=== PATIENT | female | born 1950 | race Caucasian/White ===

== ENCOUNTER 2024-10-17 05:40 | Day surgery (SDC) | payer MEDICARE, OTHER ==
[2024-10-13 14:09] LABS: BASOPHILS # (AUTO) 0.1 X10'3 (0-0.2); BASOPHILS % (AUTO) 1.1 % (0-1); EOSINOPHILS # (AUTO) 0.1 X10'3 (0-0.9); EOSINOPHILS % (AUTO) 1.8 % (0-6); LYMPHOCYTES # (AUTO) 1.7 X10'3 (1.1-4.8); LYMPHOCYTES % (AUTO) 25.4 % (21-51); MEAN CORPUSCULAR HEMOGLOBIN 30.2 PG (27.0-31.0); MEAN PLATELET VOLUME 8.7 FL (7.4-10.4); MONOCYTES # (AUTO) 0.6 X10'3 (0-0.9); MONOCYTES % (AUTO) 9.2 % (2-12); NEUTROPHILS # (AUTO) 4.2 X10'3 (1.8-7.7); NEUTROPHILS % (AUTO) 62.5 % (42-75); PRE OP HEMATOCRIT 34.3 % (35.0-45.0); PRE OP HEMOGLOBIN 11.7 g/dL (12.0-16.0); PRE OP PLATELET COUNT 226 X10'3 (140-440); PRE OP WHITE BLOOD COUNT 6.7 10'3 (4.8-10.8); RED BLOOD COUNT 3.86 X10'6 (4.20-5.60); RED CELL DISTRIBUTION WIDTH 13.3 % (11.5-14.5)
[2024-10-13 14:11] LABS: ALBUMIN 3.6 G/DL (3.4-5.0); ALBUMIN/GLOBULIN RATIO 1.1 (1.1-1.5); ALKALINE PHOSPHATASE 114 IU/L (46-116); BLOOD UREA NITROGEN 16 MG/DL (7-18); BUN/CREATININE RATIO 21.1 (10.0-20.0); CALCIUM 8.4 MG/DL (8.5-10.1); CHLORIDE 107 MMOL/L (99-107); CREATININE 0.76 MG/DL (0.40-0.90); PRE OP ALT 16 U/L (30-65); PRE OP ANION GAP 4 (8-16); PRE OP AST 13 U/L (10-37); PRE OP BILIRUB, TOTAL 0.3 MG/DL (0.0-1.0); PRE OP GLUCOSE 90 MG/DL (70-104); PRE OP POTASSIUM 4.1 MMOL/L (3.4-5.1); PRE OP SODIUM 143 MMOL/L (135-145); TOTAL PROTEIN 6.8 G/DL (6.4-8.2); eGFR 74 ML/MIN
[~2024-10-17] VITALS: Ht 157.5 cm; Wt 78.2 kg
[2024-10-17] VITALS (12 sets, daily range): BP systolic 119–159; BP diastolic 65–82; PULSE 54–78; RESP 11–38; TEMP 98.8; O2SAT 90–98
[~2024-10-17 05:40] MED LIST: FLUO-167 PO; GLUCOSAMIN; IRBE300T26 PO; LEVO100T9 PO; MSM; MULTIVITAMIN; PROBIOTIC; ROSU10TA72 PO; VITAMIN D-3
[2024-10-17] MEDS ORDERED: cefazolin 2gm/D5W 100mL 100 ML IV ONE (06:15)
[2024-10-17] MEDS: famotidine 20mg tablet PO ONE (06:36)
[2024-10-17] MEDS: ringers solution, lacted 1,000 ML IV SCH (06:37)
[2024-10-17] MEDS: ceFAZolin 2gm in dextrose, iso 50 ML IV ONE (06:37)
[2024-10-17] MEDS ORDERED: BUPIVAcaine 2.5mg/ml inj 50ml vial (contains preservative) ONE (06:55)
[2024-10-17] MEDS ORDERED: LIDOcaine 2% (20mg/ml) 5ml vial ONE ×2 (06:55→08:11)
[2024-10-17] MEDS ORDERED: hydrALAZINE 20mg/ml inj. IV PRN (08:00)
[2024-10-17] MEDS ORDERED: morphine 2 MG/ML inj. syringe IV PRN (08:00)
[2024-10-17] MEDS ORDERED: enalaprilat dihydrate 2.5mg/2ml vial IV PRN (08:00)
[2024-10-17] MEDS ORDERED: ringers solution, lacted 1,000 ML IV SCH (08:00)
[2024-10-17] MEDS ORDERED: morphine 4 MG/ML inj SYRINge IV PRN (08:00)
[2024-10-17] MEDS ORDERED: ondansetron/PF 4mg/2ml inj IV PRN (08:00)
[2024-10-17] MEDS ORDERED: fentaNYL/PF 50MCG/1 ML 2ML syringe ONE (08:09)
[2024-10-17] MEDS ORDERED: propofol inj 20 ML IV ONE (08:11)
[2024-10-17] MEDS ORDERED: MIDAZolam 1 MG/ML 5ML VIAL ONE (08:11)
[2024-10-17] MEDS: HYDROcodone/acetaminophen 5mg/325mg tablet PO ONE (10:16)
== END 2024-10-17 10:35 | disposition home or self-care (01) ==
LOC: PAS 05:40
PROVIDERS: ATTEND Orthopaedic Surgery Hand Surgery
DX: G56.02 Carpal tunnel syndrome, left upper limb (principal); M65.331 Trigger finger, right middle finger; I10 Essential (primary) hypertension; E89.0 Postprocedural hypothyroidism; J44.89 Other specified chronic obstructive pulmonary disease; E78.00 Pure hypercholesterolemia, unspecified; F32.A Depression, unspecified; M81.0 Age-related osteoporosis without current pathological fracture; M19.90 Unspecified osteoarthritis, unspecified site; Z87.891 Personal history of nicotine dependence; Z79.890 Hormone replacement therapy; Z79.899 Other long term (current) drug therapy; Z96.653 Presence of artificial knee joint, bilateral; Z98.890 Other specified postprocedural states; Z88.6 Allergy status to analgesic agent; Z88.8 Allergy status to other drugs, medicaments and biological substances; Z82.49 Family history of ischemic heart disease and other diseases of the circulatory system; Z82.61 Family history of arthritis
CPT/HCPCS: 26055; 36415; 64721; 80053; 82948; 85025; 93005; A4215; A6449; J0690; J2003; J2704; J3490; J7030; J7120; Z7506; Z7512; Z7610; J2250; J3010

== ENCOUNTER 2025-01-19 05:51 | Day surgery (SDC) | payer MEDICARE, OTHER ==
[2025-01-18 15:22] LABS: BASOPHILS # (AUTO) 0.1 X10'3 (0-0.2); BASOPHILS % (AUTO) 1.4 % (0-1); EOSINOPHILS # (AUTO) 0.2 X10'3 (0-0.9); EOSINOPHILS % (AUTO) 4.4 % (0-6); HEMATOCRIT 35.2 % (35.0-45.0); HEMOGLOBIN 11.9 g/dl (12.0-16.0); LYMPHOCYTES # (AUTO) 1.9 X10'3 (1.1-4.8); LYMPHOCYTES % (AUTO) 36.7 % (21-51); MEAN CORPUSCULAR HEMOGLOBIN 29.8 PG (27.0-31.0); MEAN CORPUSCULAR HGB CONC 33.8 g/dL (33.0-36.5); MEAN CORPUSCULAR VOLUME 88.2 FL (78-98); MEAN PLATELET VOLUME 8.5 FL (7.4-10.4); MONOCYTES # (AUTO) 0.5 X10'3 (0-0.9); MONOCYTES % (AUTO) 9.5 % (2-12); NEUTROPHILS # (AUTO) 2.5 X10'3 (1.8-7.7); PLATELET COUNT 218 X10'3 (140-440); RED BLOOD COUNT 3.99 X10'6 (4.20-5.60); WHITE BLOOD COUNT 5.2 X10'3 (4.5-11.0)
[2025-01-18 15:36] LABS: ALBUMIN 3.5 G/DL (3.4-5.0); ANION GAP 6 (8-16); BLOOD UREA NITROGEN 15 MG/DL (7-18); BUN/CREATININE RATIO 25.4 (10.0-20.0); CALCIUM 8.8 MG/DL (8.5-10.1); CHLORIDE 107 MMOL/L (99-107); CREATININE 0.59 MG/DL (0.40-0.90); GLUCOSE 86 MG/DL (70-104); POTASSIUM 4.1 MMOL/L (3.5-5.1); SODIUM 143 MMOL/L (135-145); TOTAL CARBON DIOXIDE 29.8 MMOL/L (24-32); eGFR > 90 ML/MIN
[2025-01-18 15:39] LABS: PROTHROMBIN TIME 10.4 SECONDS (9.0-12.0)
[2025-01-18 15:40] LABS: APTT 26 SECONDS (22-32)
[~2025-01-19] VITALS: Ht 157.5 cm; Wt 80.0 kg
[2025-01-19] VITALS (10 sets, daily range): BP systolic 114–155; BP diastolic 65–89; PULSE 57–75; RESP 10–20; TEMP 98.3; O2SAT 93–98
[2025-01-19] MEDS ORDERED: iohexol 350 MG/ML 50ML vial IV ONE (07:08)
[2025-01-19] MEDS ORDERED: iohexol 350MG/ML 100ml bottle IV ONE (07:08)
[2025-01-19] MEDS ORDERED: verapamil 2.5 mg/ml inj IV ONE (07:08)
[2025-01-19] MEDS ORDERED: midazolam 1 mg/ML 2ml injection ONE (07:08)
[2025-01-19] MEDS ORDERED: LIDOcaine 1% (10mg/ml) 2ml vial ONE ×2 (07:08→08:16)
[2025-01-19] MEDS ORDERED: heparin 1,000unit/ml 10ml vial 10 ML ONE (07:08)
[2025-01-19] MEDS ORDERED: fentaNYL/PF 50MCG/1 ML 2ML syringe ONE (07:08)
[2025-01-19] MEDS ORDERED: nitroGLYCERIN 500mcg/5mL D5W 5 ML IV ONE (07:09)
[2025-01-19] MEDS: diphenhydrAMINE 25mg capsule PO PRN (07:21)
[2025-01-19] MEDS: LORazepam 0.5 MG tablet PO PRN (07:21)
[2025-01-19] MEDS: normal saline 1,000 ML IV SCH (07:22)
[2025-01-19] MEDS ORDERED: OXAZEpam 15mg capsule PO PRN (10:00)
[2025-01-19] MEDS ORDERED: HYDROcodone/acetaminophen 5mg/325mg tablet PO PRN (10:00)
[2025-01-19] MEDS ORDERED: HYDROcodone/acetaminophen 10/325mg tab PO PRN (10:00)
[2025-01-19] MEDS ORDERED: normal saline 1000ml 1,000 ML IV SCH (10:00)
[2025-01-19 10:56] LABS: ISTAT HGB MIX 10.2 g/dl (12.0-16.0); ISTAT Hct MIX 30 %PCV (35-45); ISTAT O2 SATURATION MIX VENOUS 63 % (60-80); ISTAT SOURCE BLNK
== END 2025-01-19 13:05 | disposition home or self-care (01) ==
LOC: SSTAY O 05:51
PROVIDERS: ATTEND Internal Medicine Cardiovascular Disease
DX: I35.2 Nonrheumatic aortic (valve) stenosis with insufficiency (principal); I25.10 Atherosclerotic heart disease of native coronary artery without angina pectoris; I10 Essential (primary) hypertension; I71.21 Aneurysm of the ascending aorta, without rupture; E03.9 Hypothyroidism, unspecified; K21.9 Gastro-esophageal reflux disease without esophagitis; E66.9 Obesity, unspecified; E78.5 Hyperlipidemia, unspecified; Z79.01 Long term (current) use of anticoagulants; Z80.8 Family history of malignant neoplasm of other organs or systems; Z90.710 Acquired absence of both cervix and uterus; Z98.890 Other specified postprocedural states; Z68.31 Body mass index [BMI] 31.0-31.9, adult
CPT/HCPCS: 36415; 80048; 82803; 85014; 85025; 85610; 85730; 93005; 93460; 93567; 99152; 99153; A6258; A6402; C1725; C1751; C1894; J1644; J2003; J2250; J3010; J3490; J7030; Q0163; Q9967; Z7610; 76937

== ENCOUNTER 2025-01-25 10:24 | Outpatient (CLI) | payer MEDICARE, OTHER ==
[~2025-01-25 10:24] MED LIST changes: +IODIXANOL 320 MG/ML INFUS..BTL 100ML IV ONE
[2025-01-25 11:16] LABS: BASOPHILS # (AUTO) 0.1 X10'3 (0-0.2); BASOPHILS % (AUTO) 1.1 % (0-1); EOSINOPHILS # (AUTO) 0.2 X10'3 (0-0.9); EOSINOPHILS % (AUTO) 3.4 % (0-6); HEMATOCRIT 36.8 % (35.0-45.0); HEMOGLOBIN 12.2 g/dl (12.0-16.0); LYMPHOCYTES # (AUTO) 1.5 X10'3 (1.1-4.8); MEAN CORPUSCULAR HEMOGLOBIN 29.3 PG (27.0-31.0); MEAN CORPUSCULAR VOLUME 88.7 FL (78-98); MEAN PLATELET VOLUME 8.9 FL (7.4-10.4); MONOCYTES # (AUTO) 0.4 X10'3 (0-0.9); MONOCYTES % (AUTO) 6.8 % (2-12); NEUTROPHILS # (AUTO) 3.7 X10'3 (1.8-7.7); NEUTROPHILS % (AUTO) 62.7 % (42-75); PLATELET COUNT 226 X10'3 (140-440); RED BLOOD COUNT 4.15 X10'6 (4.20-5.60); RED CELL DISTRIBUTION WIDTH 13.9 % (11.5-14.5)
[2025-01-25 11:43] LABS: ALANINE AMINOTRANSFERASE 21 U/L (12-78); ALBUMIN 3.7 G/DL (3.4-5.0); ALKALINE PHOSPHATASE 131 IU/L (46-116); ANION GAP 7 (8-16); ASPARTATE AMINO TRANSFERASE 14 U/L (10-37); BILIRUBIN,TOTAL 0.5 MG/DL (0.1-1.0); BLOOD UREA NITROGEN 11 MG/DL (7-18); BUN/CREATININE RATIO 19.6 (10.0-20.0); CALCIUM 8.8 MG/DL (8.5-10.1); CHLORIDE 106 MMOL/L (99-107); CREATININE 0.56 MG/DL (0.40-0.90); GLUCOSE 86 MG/DL (70-104); POTASSIUM 4.2 MMOL/L (3.5-5.1); PRO BRAIN NATRIURETIC PEPTIDE 249 PG/ML (0-450); SODIUM 143 MMOL/L (135-145); TOTAL CARBON DIOXIDE 29.6 MMOL/L (24-32); TOTAL PROTEIN 7.3 G/DL (6.4-8.2); eGFR > 90 ML/MIN
[2025-01-25 12:10] LABS: APTT 27 SECONDS (22-32); PROTHROMBIN TIME 10.3 SECONDS (9.0-12.0)
== END 2025-01-25 23:59 | disposition home or self-care (01) ==
LOC: RAD 10:24
PROVIDERS: ATTEND Internal Medicine Cardiovascular Disease
DX: Z01.818 Encounter for other preprocedural examination (principal); I35.0 Nonrheumatic aortic (valve) stenosis; R06.02 Shortness of breath; I65.29 Occlusion and stenosis of unspecified carotid artery; I51.7 Cardiomegaly; N28.1 Cyst of kidney, acquired; I71.40 Abdominal aortic aneurysm, without rupture, unspecified; M16.0 Bilateral primary osteoarthritis of hip; K40.90 Unilateral inguinal hernia, without obstruction or gangrene, not specified as recurrent; J98.4 Other disorders of lung; J98.11 Atelectasis
CPT/HCPCS: 36415; 71046; 71275; 74174; 75572; 80053; 83880; 85025; 85610; 85730; 93880; Q9967

== ENCOUNTER 2025-03-23 05:42 | Inpatient (IN) | payer MEDICARE, OTHER ==
[2025-03-16 10:20] LABS: BASOPHILS # (AUTO) 0.1 X10'3 (0-0.2); BASOPHILS % (AUTO) 1.2 % (0-1); EOSINOPHILS # (AUTO) 0.1 X10'3 (0-0.9); EOSINOPHILS % (AUTO) 2.7 % (0-6); LYMPHOCYTES # (AUTO) 1.3 X10'3 (1.1-4.8); LYMPHOCYTES % (AUTO) 28.2 % (21-51); MEAN CORPUSCULAR HEMOGLOBIN 29.7 PG (27.0-31.0); MEAN CORPUSCULAR VOLUME 87.2 FL (78-98); MEAN PLATELET VOLUME 8.4 FL (7.4-10.4); MONOCYTES # (AUTO) 0.4 X10'3 (0-0.9); MONOCYTES % (AUTO) 8.7 % (2-12); NEUTROPHILS # (AUTO) 2.7 X10'3 (1.8-7.7); NEUTROPHILS % (AUTO) 59.2 % (42-75); PRE OP HEMATOCRIT 34.9 % (35.0-45.0); PRE OP HEMOGLOBIN 11.9 g/dL (12.0-16.0); PRE OP PLATELET COUNT 202 X10'3 (140-440); PRE OP WHITE BLOOD COUNT 4.5 10'3 (4.8-10.8); RED BLOOD COUNT 4.01 X10'6 (4.20-5.60); RED CELL DISTRIBUTION WIDTH 13.6 % (11.5-14.5)
--- NOTE | 2025-03-16 10:31 | ELECTROCARDIOGRAPH REPORT ---
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 JESSICA Cagle Measurements Intervals [place] Rate: 54 P: 48 ID: [id number] QRS: 14 QRSD: 95 T: 8 QT: 445 QTc: 422 Interpretive Statements Sinus bradycardia Electronically Signed On 03-18-2025 15:06:[address] JESSICA Cagle Please click the below link to view image of tracing.
[2025-03-16 10:40] LABS: ALBUMIN 3.5 G/DL (3.4-5.0); ALBUMIN/GLOBULIN RATIO 1.1 (1.1-1.5); ALKALINE PHOSPHATASE 134 IU/L (46-116); BLOOD UREA NITROGEN 14 MG/DL (7-18); BUN/CREATININE RATIO 21.9 (10.0-20.0); CALCIUM 8.7 MG/DL (8.5-10.1); CHLORIDE 105 MMOL/L (99-107); CREATININE 0.64 MG/DL (0.40-0.90); PRE OP ALT 18 U/L (30-65); PRE OP ANION GAP 9 (8-16); PRE OP AST 12 U/L (10-37); PRE OP BILIRUB, TOTAL 0.5 MG/DL (0.0-1.0); PRE OP GLUCOSE 80 MG/DL (70-104); PRE OP POTASSIUM 4.2 MMOL/L (3.4-5.1); PRE OP SODIUM 142 MMOL/L (135-145); PRO BRAIN NATRIURETIC PEPTIDE 195 PG/ML (0-450); THYROID STIMULATING HORMONE 1.02 ulU/ml (0.34-4.50); TOTAL CARBON DIOXIDE 28.4 MMOL/L (24-32); TOTAL PROTEIN 6.6 G/DL (6.4-8.2); eGFR 90 ML/MIN
[2025-03-16 10:45] LABS: BILIRUBIN,URINE NEGATIVE (Neg); CLARITY,URINE CLEAR (Clear); COLOR,URINE YELLOW (Yellow); GLUCOSE, URINE NEGATIVE (Neg); KETONES,URINE NEGATIVE (Neg); LEUKOCYTE ESTERASE ,URINE NEGATIVE (Neg); NITRITES, URINE NEGATIVE (Neg); OCCULT BLOOD,URINE NEGATIVE (Neg); PROTEIN,URINE NEGATIVE (Neg); UROBILINOGEN,URINE 0.2 E.U/dL (0.2-1.0)
[2025-03-16 10:54] LABS: UA COLLECTION TYPE CLN CATCH MIDSTREAM
[2025-03-16 11:06] LABS: PRE OP PROTIME 10.1 SECONDS (9.0-12.0)
--- NOTE | 2025-03-16 11:39 | RADIOLOGY REPORT ---
DI CHEST,TWO VIEWS CLINICAL HISTORY: PREOP COMPARISON: DI CHEST,TWO VIEWS on DOS: 01/25/25 TECHNIQUE: Frontal and lateral view of the chest was obtained FINDINGS: Lines and Tubes: None Lungs: No focal consolidation. Pleura: No effusion. No pneumothorax. Cardiomediastinal contours:Soft tissue density in the posterior mediastinum best seen on the lateral view consistent with a Bochdalek hernia. Bones: No acute osseous abnormality. IMPRESSION: 1. No acute cardiopulmonary disease.
[~2025-03-23] VITALS: Ht 157.5 cm; Wt 77.0 kg
[2025-03-23] VITALS (24 sets, daily range): BP systolic 117–157; BP diastolic 66–86; PULSE 52–72; RESP 12–16; TEMP 96.9–99; O2SAT 92–100
[2025-03-23] MEDS: phenylephrine inj 50 MG in normal saline 250ml IV solN IV SCH (05:30)
[2025-03-23] MEDS: nitroPRUSSIDE (NIPRIDE) (200MCG/ML) 100ML Drip IV SCH (05:30)
[~2025-03-23 05:42] MED LIST changes: +ACET-2615 PO; +BACI1CAP14 PO; +CHOL200026 PO; +DIPH25CA83 PO; -GLUCOSAMIN; -IODIXANOL 320 MG/ML INFUS..BTL 100ML IV ONE; -MSM; +MULT-1085 PO; -MULTIVITAMIN; -PROBIOTIC; -VITAMIN D-3
[2025-03-23] MEDS: ceFAZolin 2gm in dextrose, iso 50 ML IV ONE (06:16)
[2025-03-23] MEDS ORDERED: protamine sulfate 10mg/ml inj. ONE (06:16)
[2025-03-23] MEDS: clopidogrel 300mg tablet PO ONE (06:33)
[2025-03-23] MEDS: famotidine 20mg tablet PO ONE (06:33)
[2025-03-23] MEDS: ringers solution, lacted 1,000 ML IV SCH (06:34)
[2025-03-23] MEDS: VANCOMYCIN 1,500MG inj. 1,500 MG in normal saline 500ml IV soln 300 ML IV ONE (06:34)
[2025-03-23] MEDS ORDERED: diphenhydrAMINE 25mg capsule PO PRN ×2 (08:20→09:50)
[2025-03-23] MEDS ORDERED: ACETAMINOPHEN 1000 MG PO PRN (08:20)
[2025-03-23] MEDS ORDERED: iohexol 350MG/ML 100ml bottle IV ONE (08:21)
[2025-03-23] MEDS ORDERED: heparin 1,000 UNITS/NS 500ml 1,500 ML ONE (08:21)
[2025-03-23] MEDS ORDERED: LIDOcaine 1% 30ml preserv. free vial ONE (08:21)
[2025-03-23] MEDS ORDERED: propofol inj 20 ML IV ONE (08:26)
[2025-03-23] MEDS ORDERED: midazolam 1 mg/ML 2ml injection ONE (08:26)
[2025-03-23] MEDS ORDERED: fentaNYL/PF 50MCG/1 ML 2ML syringe ONE (08:26)
[2025-03-23] MEDS ORDERED: LIDOcaine 1%/PF 5ML 10 MG/ML VIAL ONE (08:26)
[2025-03-23] MEDS ORDERED: heparin 1,000unit/ml 10ml vial 10 ML ONE (09:45)
[2025-03-23] MEDS ORDERED: magnesium sulf-water 2g/50mL 50 ML IV PRN (09:50)
[2025-03-23] MEDS ORDERED: pantoprazole 40mg Tablet.DR PO PRN (09:50)
[2025-03-23] MEDS ORDERED: labetalol 20mg/4ml (5mg/ml) syringe IV PRN (09:50)
[2025-03-23] MEDS ORDERED: docusate sod 100mg capsule PO PRN (09:50)
[2025-03-23] MEDS ORDERED: potassium Cl 40MEQ/1/2NS 520ml 520 ML IV PRN (09:50)
[2025-03-23] MEDS ORDERED: potassium Cl 20mEq/100mL bag 100 ML IV PRN (09:50)
[2025-03-23] MEDS ORDERED: potassium CL 10mEq/100ml bag 100 ML IV PRN (09:50)
[2025-03-23] MEDS ORDERED: proCHLORperazine 10 MG/2 ml inj IV PRN (09:50)
[2025-03-23] MEDS ORDERED: potassium Cl 20 mEq SR tablet PO PRN (09:50)
[2025-03-23] MEDS ORDERED: potassium Cl 40MEQ/270ML bag 250 ML IV PRN (09:50)
[2025-03-23] MEDS ORDERED: ondansetron/PF 4mg/2ml inj IV PRN (09:50)
[2025-03-23] MEDS ORDERED: ALPRAZolam 0.25mg tablet PO PRN (09:50)
[2025-03-23] MEDS ORDERED: hydrALAZINE 20mg/ml inj. IV PRN (09:50)
[2025-03-23] MEDS ORDERED: magnesium sulf-water 4G/100mL 100 ML IV PRN (09:50)
--- NOTE | 2025-03-23 09:52 | OPERATIVE REPORT ---
Operative Report Providers to CC CC: THONG OAKLEY MD ~ Date of Procedure: March 23, 2025 Pre-Operative Diagnosis: Severe Aortic Stenosis Post-Operative Diagnosis SAME as PRE-Op Procedure Performed 1. Ultrasound-guided access, bilateral femoral vessels. 2. Bilateral femoral angiography. 3. Ascending aortography. 4. Temporary transvenous pacer to the RV apex. 5. Placement of a 26 mm Mendoza S3 Resilia valve. Surgeon: Jaquan Dumont MD Whittling Room Operator MD Dr. Zack Angel MD Anesthesiologist: Lucas Glover Type of Anesthesia: Other Findings: Severe Aortic Stenosis Complications None Prosthetics\Implants used: Mendoza 26mm S3 Resilia Estimated Blood Loss: Minimal Specimen Removed: None Description of Procedure: The patient was brought to the veterinarian laboratory animal care in a fasting state. They underwent MAC anesthesia. Ultrasound was used to guide access to the bilateral femoral vessels, 7-[place] sheath, left femoral artery, 6-[place] sheath, right femoral artery and left femoral vein. Bilateral femoral angiograms were obtained. Heparin was given to maintain an ACT over 250 seconds. Two crisscross Percloses were placed on the right. We upsized to an 8-[place] sheath. Two pigtail catheters placed in the ascending aorta. Ascending aortography done to determine the angle of deployment. Temporary transvenous pacer to the RV apex and confirmed capture. We upsized an 8-[place] sheath to a 14-[place] Mendoza eSheath on the right. We crossed the aortic valve using a straight stiff exchange length Terumo wire supported by a 6-[place] AL1 catheter. LV AO pressures were recorded. A [employer] extra support wire was placed in the left ventricle. A 26mm Mendoza S3 Resilia valve was brought to position and under rapid right ventricular pacing was deployed. Post-procedure, there was trivial AI and no residual . Guidewires and balloons were removed at this time. The temporary pacer was removed. The 14-[place] Mendoza eSheath was removed and two crisscross Percloses tied with adequate hemostasis. The arterial sheath on the left was removed and a single Perclose tied. The venous sheath on the left was removed and a single Angioseal used for hemostasis. Protamine was given to reverse the effects of heparin. The patient was stable post-procedure. Good pulses in the legs and no evidence of bleeding, transferred to the PACU in stable condition. HEMODYNAMICS: See procedure log RESULTS: 1. Successful placement of a 26 mm Mendoza S3 Resilia valve, right transfemoral approach, two perclose devices. Plavix 75mg QD(prior gastric bypass) 2. Hyperlipidemia: Resume statin 3. Hypertension: Resume if blood pressure remains stable Patient will be watched in the recovery area until stable, then transferred to telemetry at that time. JAQUAN DUMONT MD March 23, 2025 09:52
[2025-03-23] MEDS ORDERED: fentaNYL/PF 50MCG/1 ML 2ML syringe IV PRN (10:20)
[2025-03-23] MEDS ORDERED: morphine 4 MG/ML inj SYRINge IV PRN (10:20)
[2025-03-23] MEDS: morphine 2 MG/ML inj. syringe IV PRN (10:33)
[2025-03-23] MEDS: fentaNYL/PF 50MCG/1 ML 2ML syringe IV PRN (10:33)
[2025-03-23] MEDS: acetaminophen 1,000mg/100ml IV 100 ML IV SCH (10:34)
--- NOTE | 2025-03-23 10:34 | ELECTROCARDIOGRAPH REPORT ---
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 JESSICA Cagle Measurements Intervals [place] Rate: 54 P: -5 MT: 191 QRS: -1 QRSD: 113 T: -14 QT: 483 QTc: 458 Interpretive Statements Sinus rhythm Borderline intraventricular conduction delay Borderline T abnormalities, inferior leads Electronically Signed On 03-23-2025 19:48:[address] JESSICA Cagle Please click the below link to view image of tracing.
[2025-03-23] MEDS: normal saline 1000ml 1,000 ML IV SCH (13:18)
[2025-03-23] MEDS: HYDROcodone/acetaminophen 5mg/325mg tablet PO PRN (13:23)
[2025-03-23] MEDS: ceFAZolin 1GM/D5W- ADD-VANTAGE 50 ML IV SCH (16:21)
[2025-03-23] MEDS: sod chloride 0.9% 10ml flush syringe IV SCH (16:21)
--- NOTE | 2025-03-23 16:56 | CARDIOLOGY REPORT ---
APPROVED REPORT EXAM: Focused, limited intraprocedural transthoracic 2D, spectral and color flow Doppler echocardiogr am during TAVR deployment. Patient Location: [facility] Blood Pressure: 109 / 70 mmHg Heart Rate: 60 bpm Rhythm: SINUS Indications SEVERE AORTIC STENOSIS 26mm Mendoza Davie 3 Ultra RESILIA Bioprosthetic TAVR Recovery Coach: MD PAOLA / Interventionalist: Enedelia Dumont MD and Brandy May MD. / Surgeon: Carlos DELGADO MD. / Device rep: Marifer Cheek ELS Previous echo: 01/12/25 BVC AD EF: 60%; MICHAEL 0.89; PKV: 3.70' GRAD: 55/30; LVOT 2.00; trTR; trMR; ASC A O 4.5CM LEFT VENTRICLE Normal LV size and function. Mild concentric hypertrophy. LVEF is 65%. RIGHT VENTRICLE RV is normal size and function. ATRIA Left atrium appears at least moderately dilated. Mobile interatrial septum - no flow detected. AORTIC VALVE Trileaflet AV appears heavily calcified with significant stenosis demonstrated by reduced excursion a nd increased transvalvular and ascending aorta turbulance. MICHAEL is measured at 0.9 cmsq. Peak / mean g radients of 68 / 37mmHG. Peak velocity is measured at 4.11 m/sec.Trace insufficiency. POST DEPLOYME NT (LOOP:39): 26 mm Mendoza Davie 3 Ultra Resilia bioprosthetic TAVR appears well seated with normal function. Trace paravalvular leak present at 4, 12 o'clock in TTE SAX BASE. MICHAEL is measured at 3.15 cmsq. Peak / mean gradients of 20 / 9 mmHG. Peak velocity is measured at 2.23 m/sec. MITRAL VALVE MV is thickened with mild annular thickening. Trace regurgitation. TRICUSPID VALVE The tricuspid valve is normal in structure. Trace tricuspid regurgitation. GREAT VESSELS Ascending aorta measured at 4.5 cm. PERICARDIUM There is no pericardial effusion.
[2025-03-24] MEDS: acetaminophen 325mg tablet PO PRN (00:47)
[2025-03-24 02:00] VITALS: BP 118/66; PULSE 75; RESP 18; O2SAT 93
[2025-03-24] MEDS: ondansetron/PF 4mg/2ml inj IV PRN (05:09)
[2025-03-24 06:00] VITALS: BP 113/66; PULSE 75; RESP 14; TEMP 97.1; O2SAT 92
[2025-03-24 06:31] LABS: BASOPHILS % (AUTO) 0.5 % (0-1); EOSINOPHILS # (AUTO) 0.1 X10'3 (0-0.9); EOSINOPHILS % (AUTO) 1.2 % (0-6); HEMATOCRIT 30.4 % (35.0-45.0); HEMOGLOBIN 10.3 g/dl (12.0-16.0); LYMPHOCYTES # (AUTO) 0.8 X10'3 (1.1-4.8); MEAN CORPUSCULAR HEMOGLOBIN 29.8 PG (27.0-31.0); MEAN CORPUSCULAR VOLUME 87.6 FL (78-98); MEAN PLATELET VOLUME 9.1 FL (7.4-10.4); MONOCYTES # (AUTO) 0.5 X10'3 (0-0.9); MONOCYTES % (AUTO) 9.5 % (2-12); NEUTROPHILS # (AUTO) 4.2 X10'3 (1.8-7.7); NEUTROPHILS % (AUTO) 74.8 % (42-75); PLATELET COUNT 126 X10'3 (140-440); RED BLOOD COUNT 3.48 X10'6 (4.20-5.60); RED CELL DISTRIBUTION WIDTH 13.1 % (11.5-14.5); WHITE BLOOD COUNT 5.6 X10'3 (4.5-11.0)
[2025-03-24 07:10] LABS: ALANINE AMINOTRANSFERASE 15 U/L (12-78); ALBUMIN 2.9 G/DL (3.4-5.0); ALKALINE PHOSPHATASE 108 IU/L (46-116); ANION GAP 10 (8-16); ASPARTATE AMINO TRANSFERASE 13 U/L (10-37); BILIRUBIN,TOTAL 0.6 MG/DL (0.1-1.0); BLOOD UREA NITROGEN 8 MG/DL (7-18); CALCIUM 8.3 MG/DL (8.5-10.1); CHLORIDE 105 MMOL/L (99-107); CREATININE 0.57 MG/DL (0.40-0.90); GLUCOSE 105 MG/DL (70-104); MAGNESIUM 1.7 MG/DL (1.5-2.4); POTASSIUM 3.2 MMOL/L (3.5-5.1); PRO BRAIN NATRIURETIC PEPTIDE 970 PG/ML (0-450); SODIUM 142 MMOL/L (135-145); TOTAL CARBON DIOXIDE 26.9 MMOL/L (24-32); TOTAL PROTEIN 5.8 G/DL (6.4-8.2); eCRCL 66 ML/MIN; eGFR > 90 ML/MIN
[2025-03-24] MEDS: atorvastatin 10mg tablet PO SCH (08:00)
--- NOTE | 2025-03-24 08:18 | RADIOLOGY REPORT ---
CHEST RADIOGRAPH Indication: s/p TAVR Technique: Single frontal view of the chest was obtained Comparison: None FINDINGS: Lines and Tubes: None Lungs: No focal consolidation. Pleura: No effusion. No pneumothorax. Cardiomediastinal contours: Unremarkable Bones: No acute osseous abnormality. IMPRESSION: No acute cardiopulmonary disease.
--- NOTE | 2025-03-24 08:27 | ELECTROCARDIOGRAPH REPORT ---
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 JESSICA Cagle Measurements Intervals [place] Rate: 71 P: 31 ID: [id number] QRS: -10 QRSD: 109 T: -11 QT: 411 QTc: 447 Interpretive Statements Sinus rhythm Borderline T abnormalities, inferior leads Electronically Signed On 03-24-2025 19:06:[address] JESSICA Cagle Please click the below link to view image of tracing.
[2025-03-24] MEDS: lactobacillus rhamnosus 10,000 MMU CELLS/CAPSULE PO SCH (08:43)
[2025-03-24] MEDS: clopidogrel 75mg tablet PO SCH (08:43)
[2025-03-24] MEDS: levoTHYROXINE 100mcg tablet PO SCH (08:43)
[2025-03-24] MEDS: FLUoxetine 20mg capsule PO SCH (08:43)
[2025-03-24] MEDS: multivitamins, therapeutics tablet PO SCH (08:44)
[2025-03-24] MEDS: losartan 50mg tablet PO SCH (08:45)
[2025-03-24] MEDS: cholecalciferol (vitamin D3) 1,000 unit (25mcg) tablet PO SCH (08:45)
[2025-03-24 08:51] VITALS: RESP 14; O2SAT 92
[2025-03-24] MEDS: magnesium citrate 296ml oral solution PO ONE (09:33)
[2025-03-24 11:00] VITALS: BP 145/79; PULSE 76; RESP 12; TEMP 97.2; O2SAT 96
[2025-03-24 15:00] VITALS: BP 126/69; PULSE 62; RESP 12; TEMP 97.1; O2SAT 95
[2025-03-24] MEDS ORDERED: CLOP75TA34 PO (15:09)
--- NOTE | 2025-03-24 19:56 | CARDIOLOGY REPORT ---
APPROVED REPORT EXAM: Limited 2D, Doppler, and color-flow Echocardiogram. Patient Location: 3020 Blood Pressure: 129/69 mmHg Heart Rate: 75 bpm Indications ONE DAY FOLLOW-UP TAVR 26 mm Mendoza Davie 3 Ultra RESILIA Bioprosthetic TAVR Senior Regulatory Affairs Specialist: Roxie Cagle MD Previous echo 03/23/25 [facility] EF: 65; MICHAEL: 3.15; Peak v: 2.23; Grad: 2D Dimensions LA Diam4.5 cm IVSd 1.2 (0.7-1.1cm) LVDd 3.9 cm PWd 1.2 (0.7-1.1cm) IVSs 1.1 (0.8-1.2cm) LVDs 2.2 (2.5-4.0cm) PWs 1.2 (0.8-1.2cm) LVOT Diameter 2.60 (1.8-2.4cm) LVEF(%) 75.7 (>50%) IVC 16.04 mm FS (%) 43.9 % SV 48.6 ml CO 3.6 L/min M-Mode Dimensions Aortic Root 2.49 (2.2-3.7cm) Aortic Valve AoV Peak Ugo. 248.9 cm/s AoV VTI 56.7 cm AO Peak GR. 24.8 mmHg AO Mean GR. 15 mmHg LVOT VTI 33.73 cm LVOT Peak Ugo. 134.6 cm/s MICHAEL(VTI)/BSA 3.16 cm2/m2 MICHAEL (VTI) 3.16 cm2 Tricuspid Valve TR P. Velocity 244 cm/s RAP ESTIMATE 10 mmHg TR Peak Gr. 24 mmHg RVSP 34 mmHg LEFT VENTRICLE Normal LV size with hyperdynamic function. Mild concentric hypertrophy. Overall LVEF is 75%. RIGHT VENTRICLE RV is normal size and function. ATRIA Left atrium is mildly dilated. AORTIC VALVE 26 mm Mendoza Davie 3 Ultra Resilia bioprosthetic TAVR appears well seated with normal function. Tra ce paravalvular leak present at 4 o'clock in TTE SAX BASE. MICHAEL is measured at 3.16cmsq. Peak / mean g radients of 25 / 15 mmHG. Peak velocity is measured at 2.49 m/sec. MITRAL VALVE Mitral valve leaflets are mildly thickened with mild annular calcification. No stenosis. Mild regurgi tation. MV not fully evaluated due to limited focused exam. TRICUSPID VALVE The tricuspid valve is normal in structure with trace regurgitation. PERICARDIUM No pericardial effusion seen Other Information Study Quality: Adequate Conclusion Overall LVEF is 75%. RV is normal size and function. 26 mm Mendoza Davie 3 Ultra Resilia bioprosthetic TAVR appears well seated with normal function. Tr bernard paravalvular leak present at 4 o'clock in TTE SAX BASE. MICHAEL is measured at 3.16cmsq. Peak / devendra n gradients of 25 / 15 mmHG. Peak velocity is measured at 2.49 m/sec. Mitral valve leaflets are mildly thickened with mild annular calcification. No stenosis. Mild regur gitation. MV not fully evaluated due to limited focused exam. The tricuspid valve is normal in structure with trace regurgitation. No pericardial effusion seen
--- NOTE | 2025-03-28 11:50 | DISCHARGE SUMMARY ---
Discharge Summary Providers to CC ~ Discharge Summary Admission Diagnosis: Severe Aortic Stenosis Hospital Course DATE OF ADMISSION: 03/23/25 DATE OF DISCHARGE: 03/24/25 Discharge Diagnosis\Comment: Severe aortic stenosis status post TAVR Hyperlipidemia Hypertension Operations\Procedures: 1. Ultrasound-guided access, bilateral femoral vessels. 2. Bilateral femoral angiography. 3. Ascending aortography. 4. Temporary transvenous pacer to the RV apex. 5. Placement of a 26 mm Mendoza S3 Resilia valve. Consultants: No consultants Complications: No complications Condition on DC: Stable New Medications: Clopidogrel Bisulfate (Clopidogrel) 75 Mg Tablet 75 MG PO DAILY for 30 Days, #30 TAB Do not stop medication unless instructed by prescriber. Continued Medications: Acetaminophen (Tylenol Extra Strength) 500 Mg Tablet 1000 MG PO BID PRN for pain Bacillus Coagulans/Inulin (Probiotic 1 B Cfu-250 mg Cap) 1 Billion Cell-250 Mg Capsule 1 CAP PO DAILY for 30 Days, #30 CAP 0 Refills Cholecalciferol (Vitamin D3) (Vitamin D3) 50 Mcg (2000 Unit) Tablet 1 TAB PO DAILY for 30 Days, #30 TAB 0 Refills Diphenhydramine Hcl (Benadryl) 25 Mg Capsule 1 CAP PO HS PRN for sleep Fluoxetine HCl (Fluoxetine HCl) 20 Mg Capsule 1 CAP PO DAILY Irbesartan (Irbesartan) 300 Mg Tablet 1 TAB PO DAILY Levothyroxine Sodium (Levothyroxine Sodium) 100 Mcg Tablet 1 TAB PO DAILY Multivitamin (Multi Vitamin Daily) 1 Each Tablet 2 TAB PO DAILY for 30 Days, #30 TAB 0 Refills Rosuvastatin Calcium (Rosuvastatin Calcium) 10 Mg Tablet 1 TAB PO DAILY Discharge Summary: This is a 74-year-old female who presented for planned TAVR. Underwent placement of a 26 mm Mendoza S3 resilient valve via the right transfemoral approach. Please see Dr. Yonathan Dumont's dictation for further details on the procedure. She was monitored overnight in the telemetry unit. Remained hemodynamically stable. Has been up and ambulatory and denies chest pain or pressure. No shortness a breath. No dizziness, lightheadedness or syncope. Postoperative testing included an EKG which demonstrates sinus rhythm. Echocardiogram demonstrates an LVEF of 75%. TAVR valve is well seated with trace perivalvular leak noted at 4:00. Physical exam prior to discharge: General: Awake, alert, oriented. No apparent distress Neck: Supple. Normal range of motion. No JVD Respiratory: Lungs are clear to auscultation bilaterally. No respiratory distress. Chest: Normal shape and size. No accessory muscle use. Cardiovascular: Regular rate and rhythm. S1-S2. No murmur, gallop, rub. Gastrointestinal: Abdomen is soft. Nontender to palpation. Bowel sounds present. Extremities: No lower extremity edema, cyanosis or clubbing. Bilateral femoral cath sites with dressings clean dry and intact. No swelling or hematoma. Dorsalis pedis pulses are palpable. Neurologic: Alert and oriented x4. Nonfocal Psychiatric: Normal mood and affect. Skin: Normal color. Warm and dry. Plan: Case was reviewed with Dr. Yonathan Dumont and Dr. Jose Angel May. They had the chance to review postoperative testing in agreement with discharge home. Activity restrictions reviewed. Patient is stable for discharge. *Problems/Diagnosis: (1) Hypertension (2) Hyperlipidemia (3) Aortic stenosis Total Time Spent on D/C: Up to 30 Minutes Counseling Services Smoking & Tobacco Cessation: N/A DENZEL BENJAMIN NP March 28, 2025 11:50
== END 2025-03-24 16:38 | disposition home or self-care (01) | DRG 266 ==
LOC: PAS IN 05:42 → PCU 3S 11:50
PROVIDERS: ADMIT Internal Medicine Cardiovascular Disease; ATTEND Internal Medicine Cardiovascular Disease
PROC: B41D1ZZ Fluoroscopy of Aorta and Bilateral Lower Extremity Arteries using Low Osmolar Contrast (ICD-10-PCS; 2025-03-23)
PROC: 02RF38Z Replacement of Aortic Valve with Zooplastic Tissue, Percutaneous Approach (ICD-10-PCS; principal; 2025-03-23 08:45)
DX: I35.0 Nonrheumatic aortic (valve) stenosis (principal); Z00.6 Encounter for examination for normal comparison and control in clinical research program; I50.33 Acute on chronic diastolic (congestive) heart failure; Z79.899 Other long term (current) drug therapy; I11.0 Hypertensive heart disease with heart failure
CPT/HCPCS: 33361; 36415; 71045; 71046; 76937; 80053; 81003; 82948; 83735; 83880; 84443; 85025; 85347; 85610; 85730; 86870; 86885; 86900; 86901; 86902; 86905; 86920; 86922; 87081; 93005; 93308; A4615; A4618; A6258; A6449; C1756; C1760; C1769; C1894; G0378; J0131; J0690; J1644; J2003; J2250; J2270; J2371; J2405; J2704; J2720; J3010; J3370; J3490; J7030; J7040; J7050; J7120; Q9967

== ENCOUNTER 2025-06-27 16:24 | Emergency (ER) | payer MEDICARE, OTHER ==
[~2025-06-27] VITALS: Ht 157.5 cm; Wt 76.4 kg
[~2025-06-27 16:24] MED LIST changes: +CLOP75TA34 PO
[2025-06-27] MEDS: HYDROcodone/acetaminophen 10/325mg tab PO STA ×2 (16:41→19:16)
--- NOTE | 2025-06-27 16:45 | Physician Documentation ---
History of Present Illness ~ Chief Complaint: Wrist pain Stated Complaint: ARM PAIN Time Seen by MD: 18:27 Primary Medical Doctor: Dr. Gurjit COSTELLO This is a 74-year-old female who presents with left wrist pain after a ground level trip and fall on a outstretched arm, patient reports she is on blood thinner though no head strike and no loss of consciousness. Patient reports noting obvious deformity to her wrist. Patient reports no numbness or tingling to fingers of left hand. Medication Reconciliation Allergies: Coded Allergies: VAL Inhibitors (Verified Allergy, Unknown, SEVERE COUGH WITH DESAT, DROP IN HEART RATE, 10/14/24) Beta-Blockers (Beta-Adrenergic Bloc (Verified Allergy, Unknown, WHEEZING, 10/14/24) NSAIDS (Non-Steroidal Anti-Inflamma (Verified Allergy, Unknown, 03/22/25) clindamycin (Verified Allergy, Unknown, C.DIFF SEPSIS, 10/14/24) droperidol (Verified Allergy, Unknown, EXTRAPYRAMIDAL SPASMS, 10/14/24) Scheduled Bacillus Coagulans/Inulin (Probiotic 1 B Cfu-250 mg Cap), 1 CAP PO DAILY, (Reported) Cholecalciferol (Vitamin D3) (Vitamin D3), 1 TAB PO DAILY, (Reported) Clopidogrel Bisulfate (Clopidogrel), 75 MG PO DAILY Fluoxetine HCl (Fluoxetine HCl), 1 CAP PO DAILY, (Reported) Irbesartan (Irbesartan), 1 TAB PO DAILY, (Reported) Levothyroxine Sodium (Levothyroxine Sodium), 1 TAB PO DAILY, (Reported) Multivitamin (Multi Vitamin Daily), 2 TAB PO DAILY, (Reported) Rosuvastatin Calcium (Rosuvastatin Calcium), 1 TAB PO DAILY, (Reported) Scheduled PRN Acetaminophen (Tylenol Extra Strength), 1,000 MG PO BID PRN for pain, (Reported) Diphenhydramine Hcl (Benadryl), 1 CAP PO HS PRN for sleep, (Reported) Review of Systems Constitutional: Denies: chills, fever, weakness Eyes: Denies: pain, blurred vision ENT: Denies: ear pain, nose pain, throat pain, mouth pain Respiratory: Denies: cough, shortness of breath Cardiovascular: Denies: chest pain, palpitations Gastrointestinal: Denies: abdominal pain, nausea, vomiting Genitourinary: Denies: burning, dysuria Female Genitalia: Denies: vaginal discharge, pelvic pain Neurological: Denies: headache, dizziness Musculoskeletal: Denies: pain, swelling Integumentary: Denies: rash, lesions Allergic/Immunologic: Denies: hives, itching Hematologic/Lymphatic: Denies: no symptoms reported Psychiatric: Denies: depression, anxiety Physical Exam Vital Signs: Temperature: 98.1, Source: Temporal, Heart Rate: 60, Respiratory Rate: 18, BP: 141/77, Pulse Oximetry: 97, Weight: 76.360 Oxygen Flow Rate: 0 Physical Exam General: Awake and Alert, no acute distress. HEENT: Conjunctiva pink, Sclera clear, Mucus Membranes moist. Neck: Supple without masses and tenderness. Resp: Unlabored. Lungs clear to auscultation bilaterally. Heart: Regular Rate and rhythm, normal S1 and S2 without murmur, rub or gallop. Musculoskeletal: Patient on exam does have obvious deformity of the left distal radius. Patient has significant pain with any type of range of motion. Patient is neurovascularly intact distally. Motor function intact distally. Extremities: No cyanosis,clubbing or edema. Skin: Warm and Dry. Progress Results/Orders Results/Orders Medications Received in ER Medications (Trade) Dose Ordered Sig/Constance Route PRN Reason Start Time Stop Time Status Last Admin Dose Admin ([place] 10/325mg tab) 1 tab ONCE STAT PO 06/27/25 16:37 06/27/25 16:38 DC 06/27/25 16:41 1 TAB Vital Signs 06/27/25 06/27/25 16:35 16:41 Temp 98.1 Pulse 60 Resp 18 18 B/P (MAP) 141/77 Pulse Ox 97 O2 Flow Rate 0 EKG/XRAY/CT/US/VASC/MRI Bone/Soft Tissue X-Ray (Ext.) : Additional Comment X-ray of the left wrist interpreted by myself today shows left distal radius metaphyseal fracture with displacement and dorsal angulation. There is also ulnar styloid fracture present. DIAGNOSTIC RADIOLOGY Patient: SERGEI PERALTA Medical Record: [id number] 1950, Age: 74 Sex: Female Location: ER Patient Status: REG ER Service Date/Time: 06/27/251636 Ordering Physician: NATHANAEL MEDINA MD Exam: WRIST, COMPLETE (3VW MIN) EXAM: DI WRIST, COMPLETE (3VW MIN) HISTORY: WRIST PAIN,LEFT COMPARISON: None TECHNIQUE: Three views of the left wrist were performed. FINDINGS/IMPRESSION: 1. Left distal radial metaphyseal fracture with dorsal displacement, dorsal angulation, comminution, and intra-articular extension. 2. Mildly displaced fracture of the base of the ulnar styloid. 3. No fractures are identified about the carpal bones or metacarpal bones. 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 Electronically Signed by:KUSH POLO MD Date & Time: 06/27/251714 Dictated by: KUSH POLO MD Dictation date and time: 06/27/251714 Primary Care Provider: NO PRIMARY CARE PROVIDER cc: NATHANAEL MEDINA MD ~ Medical Decision Making Findings This is a 74-year-old female who presents with left wrist pain after a ground level trip and fall on a outstretched arm, patient reports she is on blood thinner though no head strike and no loss of consciousness. Patient reports noting obvious deformity to her wrist. Patient reports no numbness or tingling to fingers of left hand. I [facility] and he recommended finger traction with application of sugar-tong splint being applied to the left upper extremity. And patient will follow up with Dr. Hutchinson in his office as soon as possible for likely surgical intervention. Patient will return to ED with any worsening, concerning or changing symptoms. Patient was given a [place] 10/325 mg tablet by mouth and 2 hours later patient had no significant improvement of pain and another tablet of [place] 10/325 mg was given to the patient. Patient was given a prescription for [place] 10/325 mg sent to patient pharmacy to be taken as directed. Departure Disposition: HOME / SELF CARE / HOMELESS Impression: Primary Impression: Distal radius fracture, left Qualified Codes: S52.502A - Unspecified fracture of the lower end of left radius, initial encounter for closed fracture Additional Impression: Fracture of ulnar styloid Qualified Codes: S52.612A - Displaced fracture of left ulna styloid process, initial encounter for closed fracture Condition: Stable Discharge Instructions: Wrist Fracture Treated With Immobilization Additional Instructions: I did consult with Dr. Hutchinson the orthopedist on-call tonight and he recommended finger traction with application of sugar-tong splint being applied to the left upper extremity. And patient will follow up with Dr. Hutchinson in his office as soon as possible for likely surgical intervention. Patient will return to ED with any worsening, concerning or changing symptoms. Patient was given a [place] 10/325 mg tablet by mouth and 2 hours later patient had no significant improvement of pain and another tablet of [place] 10/325 mg was given to the patient. Patient was given a prescription for [place] 10/325 mg sent to patient pharmacy to be taken as directed. Prescription of senna and stool softener also sent to patient pharmacy. Referrals: NO PRIMARY CARE PROVIDER (PCP) Prescriptions Sennosides/Docusate Sodium (Senna Plus 8.6-50 mg Tablet) 8.6 Mg-50 Mg Tablet 1 TAB PO TID for 10 Days, #30 TAB 0 Refills Prov: BROOKLYN HARTMAN 06/27/25 Hydrocodone Bit/Acetaminophen (Hydrocodone-Apap 10-325 Tablet) 10mg/325mg Tablet 1 TAB PO QID PRN PRN for pain for 5 Days, #20 TAB Prov: BROOKLYN HARTMAN 06/27/25 Signature Scribe Signature: No scribe Attestation: No scribe DEVYN TAYLORP Jun 27, 2025 16:45 BROOKLYN HARTMAN Jun 27, 2025 19:09
--- NOTE | 2025-06-27 17:17 | RADIOLOGY REPORT ---
EXAM: DI WRIST, COMPLETE (3VW MIN) HISTORY: WRIST PAIN,LEFT COMPARISON: None TECHNIQUE: Three views of the left wrist were performed. FINDINGS/IMPRESSION: 1. Left distal radial metaphyseal fracture with dorsal displacement, dorsal angulation, comminution, and intra-articular extension. 2. Mildly displaced fracture of the base of the ulnar styloid. 3. No fractures are identified about the carpal bones or metacarpal bones. 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
[2025-06-27] MEDS ORDERED: HYDR-3973 PO (19:09)
[2025-06-27] MEDS ORDERED: SENN-302 PO (19:12)
[2025-06-27 20:07] VITALS: BP 138/72; PULSE 58; RESP 18; TEMP 98.6; O2SAT 98
== END 2025-06-27 20:09 | disposition home or self-care (01) ==
LOC: ER 16:25 → ADULT MH 16:29 → ER 20:09
DX: S52.592A Other fractures of lower end of left radius, initial encounter for closed fracture (principal); S52.612A Displaced fracture of left ulna styloid process, initial encounter for closed fracture; Z88.1 Allergy status to other antibiotic agents; Z88.6 Allergy status to analgesic agent; X58.XXXA Exposure to other specified factors, initial encounter; Y93.89 Activity, other specified; Y92.89 Other specified places as the place of occurrence of the external cause; Y99.8 Other external cause status
CPT/HCPCS: 29125; 73110; 99284

== ENCOUNTER 2025-07-10 09:18 | Day surgery (SDC) | payer OTHER, MEDICARE ==
[2025-07-07 15:06] LABS: MEAN PLATELET VOLUME 8.1 FL (7.4-10.4); PRE OP HEMATOCRIT 36.1 % (35.0-45.0); PRE OP HEMOGLOBIN 12.0 g/dL (12.0-16.0); PRE OP PLATELET COUNT 197 X10'3 (140-440); PRE OP WHITE BLOOD COUNT 7.0 10'3 (4.8-10.8); RED CELL DISTRIBUTION WIDTH 14.3 % (11.5-14.5)
[2025-07-07 15:20] LABS: CREATININE 0.55 MG/DL (0.40-0.90); PRE OP ALT 23 U/L (30-65); PRE OP ANION GAP 7 (8-16); PRE OP AST 24 U/L (10-37); PRE OP BILIRUB, TOTAL 0.4 MG/DL (0.0-1.0); PRE OP GLUCOSE 87 MG/DL (70-104); PRE OP POTASSIUM 4.3 MMOL/L (3.4-5.1); PRE OP SODIUM 143 MMOL/L (135-145); TOTAL CARBON DIOXIDE 31.3 MMOL/L (24-32); eGFR > 90 ML/MIN
[~2025-07-10] VITALS: Ht 157.5 cm; Wt 76.2 kg
[2025-07-10] VITALS (14 sets, daily range): BP systolic 122–147; BP diastolic 70–89; PULSE 65–81; RESP 11–16; TEMP 98; O2SAT 92–99
[~2025-07-10 09:18] MED LIST changes: -ACET-2615 PO; +BUPIVAcaine/PF 2.5mg/ml (0.25%) 10ml vial ONE; +CLOP75TA33 PO; -CLOP75TA34 PO; -DIPH25CA83 PO; +IRBE150T34 PO; -IRBE300T26 PO; +LIDOcaine 2% (20mg/ml) 5ml vial ONE; -MULT-1085 PO; +MULT-1249 PO
[2025-07-10] MEDS: ringers solution, lacted 1,000 ML IV SCH (10:13)
[2025-07-10] MEDS: ceFAZolin 2gm/dext,iso 50mL 50 ML IV ONE (10:13)
[2025-07-10] MEDS ORDERED: propofol inj 20 ML IV ONE (10:57)
[2025-07-10] MEDS ORDERED: ondansetron/PF 4mg/2ml inj ONE (10:57)
[2025-07-10] MEDS ORDERED: ROPIVAcaine 0.5% (5mg/ml) 30ml vial ONE (10:57)
[2025-07-10] MEDS ORDERED: fentaNYL/PF 50MCG/1 ML 2ML syringe ONE (10:57)
[2025-07-10] MEDS ORDERED: midazolam 1 mg/ML 2ml injection ONE (10:57)
[2025-07-10] MEDS ORDERED: desflurane 240ml liquid inh. IH ONE (11:30)
[2025-07-10] MEDS ORDERED: dexamethasone sod phosphate 4mg/ml inj. ONE (11:30)
[2025-07-10] MEDS ORDERED: morphine 4 MG/ML inj SYRINge IV PRN (12:00)
[2025-07-10] MEDS ORDERED: ondansetron/PF 4mg/2ml inj IV PRN (12:00)
[2025-07-10] MEDS ORDERED: fentaNYL/PF 50MCG/1 ML 2ML syringe IV PRN ×2 (12:00)
[2025-07-10] MEDS ORDERED: ringers solution, lacted 1,000 ML IV SCH (12:00)
[2025-07-10] MEDS ORDERED: hydrALAZINE 20mg/ml inj. IV PRN (12:00)
--- NOTE | 2025-07-10 12:06 | ANESTHESIA RECORDS ---
Nerve Block Providers to CC CC: ALANNA STARKEY Jr., MD ~ Diagnosis: Nerve Block requested by: ALANNA STARKEY Jr., MD Neuraxial/Peripheral Nerve Block requested for Post-operative analgesia by Physician above DIAGNOSIS: Post-operative pain. (Body Area) Shoulder: [ ] Arm: [ ] Hand: [ ] Hip: [ ] Knee: [ ] Ankle: [ ] Foot: [ ] Leg: [ ] Abdomen: [ ] Other: [ ] Post-operative pain expected to be/is inadequately managed by oral or IV medicines. Regional anesthetic expected to facilitate rehabilitation and/or discharge from facility. Other:[ _] Procedure Performed: Axillary: Left Time out Done?: Yes Time of Time out: 11:05 Procedure Details: PROCEDURE DETAILS: Risks, benefits and alternatives explained Informed consent obtained, and patient wishes to proceed Conscious sedation with indicated monitors Patient positioned, pertinent anatomy defined, sterile technique used Needle used: [ ] 3 1/8 inch Stimuplex Ultra 22ga [x ] 4 inch Stimuplex Ultra 20ga [ ] 6 inch Stimuplex Ultra 20ga [ ] 6 inch, Quikbloc over the needle catheter set 20ga [ ] 4 inch Quikbloc over the needle catheter set 20ga [ ]Other: [ ] Loss of twitch @ [ ]mA [ ] Single Injection [ ] Catheter Ultrasound Guidance Used: [x ] Yes [ ] No Attempts:[ 1 ] Medicines injected: [ ]Clonidine Amt:[ ] [ X ]Dexamethasone Amt:[___2MG ] [ x ]Ropivacaine Amt:[__0.5% 40 C.C ] [ ]Bupivacaine Amt:[ ] [ ]Lidocaine Amt:[ ] [ ]Exparel 1.33%:[ ] [ ]Epinephrine Amt[ ] [ ]Other: [ ] Intermittent aspiration during local anesthetic administration No symptoms of intraneural or intravenous injection Patient tolerated procedure well Comments Left axilla is examined with Ultrasound and axillary vessesl are identified, No organized brachial plexus are identified. Local mix is distributed around axillary vessels. 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 Needle is near the bundle and upon stimulation muscle contractions noted. Local mix is injected. Ultrasound image is captured. BASSEM GONZALEZ MD Jul 10, 2025 12:06
--- NOTE | 2025-07-10 13:05 | OPERATIVE REPORT ---
Operative Report Providers to ~ Date of Procedure: Jul 10, 2025 Pre-Operative Diagnosis: Her left distal radius fracture closed Post-Operative Diagnosis SAME as PRE-Op Procedure Performed Open reduction internal fixation of left distal radius fracture 3+ fragments Surgeon: Ermias Hutchinson MD Motion Graphics Designer None Anesthesiologist: Ortega Cuevas Type of Anesthesia: Regional Findings: Prosthetics\Implants used: Bone bridge standard distal radius locking plate and screws Estimated Blood Loss: None Specimen Removed: None Description of Procedure: The patient is a 74-year-old right-hand dominant woman who tripped and fell while at work on in the about June 27, 2025. She suffered a distal radius fracture with the displacement mostly in the dorsal but also in a radial direction. Angulation is unacceptable and surgery is indicated to stabilize fracture and restore function. Risks and benefits were discussed with the patient and she agreed to proceed. In the operating room axillary block was given along with a general anesthetic. The left arm was then prepped and draped in usual manner. Standard volar radial approach was made between the flexor carpi radialis and the radial artery. The pronator was elevated off the distal radius and the fracture fragments were identified. Under fluoro the fracture was manually reduced. The plate was placed on under fluoro and provisionally affixed proximally. Once the proper plate alignment was confirmed a total of three screws were placed proximally and then while holding the reduction in place with a K-wire three locking distal screws were placed in the subcortical bone. Fluoro imaging showed good position of the fracture and the hardware. The incision was then irrigated and closed in layers. A sterile dressing was applied along with a splint. The tourniquet was released the hand perfused well. The patient was awakened and taken to the recovery room in stable condition and tolerated the procedure well. Counts repoted as correct: Yes ERMIAS HUTCHINSON Jr., MD Jul 10, 2025 13:05
== END 2025-07-10 13:57 | disposition home or self-care (01) ==
LOC: PAS 09:18
PROVIDERS: ATTEND Orthopaedic Surgery Hand Surgery
DX: S52.572A Other intraarticular fracture of lower end of left radius, initial encounter for closed fracture (principal); G89.18 Other acute postprocedural pain; I10 Essential (primary) hypertension; J45.909 Unspecified asthma, uncomplicated; E78.00 Pure hypercholesterolemia, unspecified; E89.0 Postprocedural hypothyroidism; M81.0 Age-related osteoporosis without current pathological fracture; F32.A Depression, unspecified; Z79.890 Hormone replacement therapy; Z79.899 Other long term (current) drug therapy; Z96.653 Presence of artificial knee joint, bilateral; Z98.890 Other specified postprocedural states; Z88.1 Allergy status to other antibiotic agents; Z88.6 Allergy status to analgesic agent; Z88.8 Allergy status to other drugs, medicaments and biological substances; Z82.49 Family history of ischemic heart disease and other diseases of the circulatory system; W01.0XXA Fall on same level from slipping, tripping and stumbling without subsequent striking against object, initial encounter; Y93.89 Activity, other specified; Y92.89 Other specified places as the place of occurrence of the external cause; Y99.8 Other external cause status
CPT/HCPCS: 25609; 36415; 64417; 80053; 82948; 85025; C1713; J1100; J2003; J2250; J2405; J2704; J2795; J3010; J3490; J7030; J7120; Z7506; Z7512; A4215; A4565; A4618; A6449; A7000

== ENCOUNTER → 2025-09-18 | Day surgery (SDC) | payer MEDICARE, OTHER ==
--- NOTE | 2025-09-14 14:08 | ELECTROCARDIOGRAPH REPORT ---
[facility] Test Date: 2025-09-14 Test Time: 15:06:20 Pat Name: SERGEI PERALTA Department: [facility]-PRE-OP Patient ID: [facility]-[id number] Room: Gender: F Digital Specialist: : [id number] Requested By: ALANNA STARKEY Order Number: [id number] Reading MD: Dr. JESSICA Cagle Measurements Intervals [employer] Rate: 59 P: 23 ID: [id number] QRS: -10 QRSD: 102 T: 16 QT: 448 QTc: 444 Interpretive Statements Sinus bradycardia Electronically Signed On 09-14-2025 17:37:[address] JESSICA Cagle Please click the below link to view image of tracing.
[2025-09-14 14:31] LABS: MEAN PLATELET VOLUME 8.7 FL (7.4-10.4); PRE OP HEMATOCRIT 34.2 % (35.0-45.0); PRE OP HEMOGLOBIN 11.7 g/dL (12.0-16.0); PRE OP PLATELET COUNT 169 X10'3 (140-440); PRE OP WHITE BLOOD COUNT 5.9 10'3 (4.8-10.8); RED CELL DISTRIBUTION WIDTH 14.2 % (11.5-14.5)
[2025-09-14 14:39] LABS: CREATININE 0.47 MG/DL (0.40-0.90); PRE OP ALT 17 U/L (30-65); PRE OP ANION GAP 6 (8-16); PRE OP AST 21 U/L (10-37); PRE OP BILIRUB, TOTAL 0.3 MG/DL (0.0-1.0); PRE OP GLUCOSE 92 MG/DL (70-104); PRE OP POTASSIUM 4.2 MMOL/L (3.4-5.1); PRE OP SODIUM 139 MMOL/L (135-145); TOTAL CARBON DIOXIDE 28.2 MMOL/L (24-32); eGFR > 90 ML/MIN
[2025-09-18] VITALS (9 sets, daily range): BP systolic 113–163; BP diastolic 68–91; PULSE 64–79; RESP 9–25; TEMP 98.5; O2SAT 94–97
[~2025-09-18] VITALS: Ht 157.5 cm; Wt 75.8 kg
[~2025-09-18] MED LIST changes: +ACET-1015 PO; +BUPIVAcaine 2.5mg/ml inj 50ml vial (contains preservative) ONE; -BUPIVAcaine/PF 2.5mg/ml (0.25%) 10ml vial ONE; +HYDROmorphone/PF 0.2 MG/ML SYRINGE IV PRN; -LIDOcaine 2% (20mg/ml) 5ml vial ONE; +ROPIVAcaine 0.5% (5mg/ml) 30ml vial ONE; -ROSU10TA72 PO; +ROSU10TA98 PO; +cloNIDine hcl/PF 100mcg/ml inj ONE; +dexamethasone sod phosphate 4mg/ml inj. ONE; +fentaNYL/PF 50MCG/1 ML 2ML syringe ONE; +hydrALAZINE 20mg/ml inj. IV PRN; +labetalol 20mg/4ml (5mg/ml) syringe IV PRN; +midazolam 1 mg/ML 2ml injection ONE; +morphine 4 MG/ML inj SYRINge IV PRN; +ondansetron/PF 4mg/2ml inj IV PRN; +ondansetron/PF 4mg/2ml inj ONE; +propofol inj 20 ML IV ONE; +ringers solution, lacted 1,000 ML IV SCH
[2025-09-18] MEDS: DOCUMENT DATE & TIME OF BETA-BLOCKER PO ONE (10:34)
[2025-09-18] MEDS: ceFAZolin 2gm/dext,iso 50mL 50 ML IV ONE (10:35)
[2025-09-18] MEDS: ringers solution, lacted 1,000 ML IV SCH (10:35)
[2025-09-18] MEDS: acetaminophen 1,000mg/100ml IV 100 ML IV PRN (12:41)
--- NOTE | 2025-09-18 16:00 | OPERATIVE REPORT ---
Operative Report Providers to ~ Date of Procedure: Sep 18, 2025 Pre-Operative Diagnosis: Malunion left distal radius fracture Post-Operative Diagnosis SAME as PRE-Op Procedure Performed Left distal radius corrective osteotomy Surgeon: Ermias Hutchinson MD Supervisor Diagnostic None Anesthesiologist: Miguelangel Sheffiled Type of Anesthesia: Regional Findings: Prosthetics\Implants used: Bone bridge left distal radius locking plate, long with screws Estimated Blood Loss: None Specimen Removed: Previous hardware was removed but not sent to pathology Description of Procedure: The patient is a 74-year-old woman who in the past suffered a distal radius fracture and underwent ORIF with a volar plate. Unfortunately the fixation collapsed into dorsal angulation and some of the screws were backing out. Surgery today is indicated to correct the deformity and remove the hardware which may lead to tendon rupture. Risks and benefits were discussed with the patient. Some of the include infection, bleeding, stiffness, hardware pain and tendon damage. She agreed to proceed. Of the block was given in the operating room and the arm was prepped and draped in usual manner with the tourniquet up high. The previous surgical scar was incised and dissection was taken down to the plate. The plate and all the screws were removed. The fracture had solidified. Under fluoro guidance two K- wires were advanced parallel to the dorsally angulated joint about 1 in proximal to the wrist joint itself. This was then followed by a cut using a sagittal saw. This was done almost to the opposite cortex and an osteotome was then used to complete the cut. Traction and osteotome were used to correct the dorsal angulation and the radial inclination. Another plate was affixed proximally 1st and then with the distal fragment was brought up to it the correct the dorsal angulation and radial inclination. It was fixated with a four locking screws distally and three screws proximally. Fluoro imaging showed good position of the plate and fracture malunion. The incision was then irrigated and closed in layers. A sterile dressing was applied along with a splint. The tourniquet was released the hand perfused well. The patient was awakened and taken to the recovery room in stable condition. ERMIAS HUTCHINSON Jr., MD Sep 18, 2025 16:00
== END | disposition home or self-care (01) ==
LOC: PAS 09:38
PROVIDERS: ATTEND Orthopaedic Surgery Hand Surgery
DX: S52.502P Unspecified fracture of the lower end of left radius, subsequent encounter for closed fracture with malunion (principal); S52.92XP Unspecified fracture of left forearm, subsequent encounter for closed fracture with malunion; M19.011 Primary osteoarthritis, right shoulder; M19.032 Primary osteoarthritis, left wrist; M62.81 Muscle weakness (generalized); R00.1 Bradycardia, unspecified; R73.09 Other abnormal glucose; X58.XXXD Exposure to other specified factors, subsequent encounter
CPT/HCPCS: 25350; 36415; 80053; 82948; 85025; 93005; C1713; J0131; J0735; J1100; J2250; J2405; J2704; J2795; J3010; J3490; J7030; J7120; Z7506; Z7508; Z7512; A4565; A4615; A4618; A6449; A7000